=== PATIENT | male | born 1950 | race Caucasian/White ===

== ENCOUNTER 2017-11-17 23:04 | Inpatient (IN) | payer OTHER, BC ==
[2017-11-18 00:25] LABS: ADD MAN DIFF? NO
[2017-11-18 00:29] LABS: BASOPHIL # 0.1 10^3/ul (0.0-0.1); BASOPHILS % 0.9 % (0.0-2.0); EOSINOPHILS # 0.1 10^3/ul (0.0-0.5); EOSINOPHILS % 0.9 % (0.0-7.0); HEMATOCRIT 46.4 % (42.0-52.0); HEMOGLOBIN 15.5 g/dl (14.0-18.0); LYMPHOCYTES # 2.1 10^3/ul (0.8-2.9); LYMPHOCYTES % 26.3 % (15.0-51.0); MEAN CORPUSCULAR HEMOGLOBIN 30.5 pg (29.0-33.0); MEAN CORPUSCULAR HGB CONC 33.4 g/dl (32.0-37.0); MEAN CORPUSCULAR VOLUME 91.3 fl (82.0-101.0); MEAN PLATELET VOLUME 11.5 fl (7.4-10.4); MONOCYTE # 0.9 10^3/ul (0.3-0.9); MONOCYTES % 10.6 % (0.0-11.0); NEUTROPHIL # 4.9 10^3/ul (1.6-7.5); NEUTROPHILS % 60.9 % (39.0-77.0); PLATELET COUNT 160 10^3/UL (140-415); RED BLOOD COUNT 5.08 10^6/ul (4.70-6.10); RED CELL DISTRIBUTION WIDTH 13.9 % (11.5-14.5)
[2017-11-18] MEDS: IPRATROPIUM (NEB) 0.5 MG/2.5 ML AMP INH (00:48)
[2017-11-18 00:49] LABS: INR 0.85; PROTIME 11.7 Sec (11.9-14.9); PT RATIO 0.9
[2017-11-18] MEDS: ALBUTEROL 0.5% (NEB) 2.5 MG/0.5 ML AMP INH (00:49)
[2017-11-18 00:50] LABS: PARTIAL THROMBOPLASTIN TIME 30.9 Sec (25.0-35.0)
[2017-11-18] MEDS: METHYLPREDNISOLONE 125 MG INJ IV (00:54)
[2017-11-18 01:23] LABS: ALANINE AMINOTRANSFERASE 38 IU/L (13-69); ALBUMIN 3.5 g/dl (3.3-4.9); ALKALINE PHOSPHATASE 70 IU/L (42-121); ANION GAP 15 (8-16); ASPARTATE AMINO TRANSFERASE 29 IU/L (15-46); BILIRUBIN,INDIRECT 0.1 mg/dl (0-1.1); BILIRUBIN,TOTAL 0.1 mg/dl (0.2-1.3); BLOOD UREA NITROGEN 17 mg/dl (7-20); CALCIUM 8.5 mg/dl (8.4-10.2); CARBON DIOXIDE 33 mmol/L (21-31); CHLORIDE 101 mmol/L (97-110); CREATININE 0.81 mg/dl (0.61-1.24); GLUCOSE 95 mg/dl (70-220); POTASSIUM 3.9 mmol/L (3.5-5.1); SODIUM 145 mmol/L (135-144); TOTAL PROTEIN 6.4 g/dl (6.1-8.1)
[2017-11-18] MEDS: CEFTRIAXONE 1 GM/50 ML (PMX) 50 ML IVPB ×2 (01:30→23:50)
[2017-11-18] MEDS: LORAZEPAM 2 MG INJ IV (01:30)
[2017-11-18] MEDS: AZITHROMYCIN 500MG/NS (PMX) 250 ML IV (01:31)
[2017-11-18 01:35] LABS: B-TYPE NATRIURETIC PEPTIDE 920 PG/ML (0-125); TROPONIN-I 0.084 ng/ml (0.00-0.12)
[2017-11-18 06:58] LABS: LACTIC ACID 1.1 mmol/L (0.5-2.0)
[2017-11-18] MEDS: OXYCODONE/ACETAMINOPHEN (5/325) TAB PO ×2 (07:26→23:51)
[2017-11-18 08:17] LABS: HEPATITIS B SURFACE ANTIGEN NEGATIVE (NEGATIVE)
[2017-11-18 08:34] LABS: HEPATITIS B SURFACE ANTIBODY NEGATIVE (NEGATIVE)
[2017-11-18 08:34] LABS: HEPATITIS C VIRAL ANTIBODY NEGATIVE (NEGATIVE)
[2017-11-18 08:35] LABS: HIV 1&2 ANTIBODY NEGATIVE (NEGATIVE)
[2017-11-18 12:58] LABS: AADO2 Arterial 71.8 mmHg (7.0-24.0); Allen Test ACCEPTAB; Arterial Base Excess 6.2 mmol/L (-3.0-3); Arterial COHb 1.8 % (0.0-3.0); Arterial HCO3 33.8 mmol/L (22.0-26.0); Arterial MetHb 0.3 % (0.0-1.5); Arterial Total Hemglobin 16.5 g/dl (12.0-18.0); Arterial pCO2 59.8 mmhg (35-45); Blood Gas IEPAP 15/5; Blood Gas PS 10; MODE MASK - BIPAP; Site Right Radial
[2017-11-18] MEDS ORDERED: ONDANSETRON 4 MG TAB PO ×2 (13:30→21:30)
[2017-11-18] MEDS ORDERED: NACL 0.9% 3 ML SYG IV (13:30)
[2017-11-18] MEDS ORDERED: OXYCODONE/ACETAMINOPHEN (5/325) TAB PO (13:30)
[2017-11-18] MEDS ORDERED: BISACODYL (EC) 5 MG TAB PO (13:30)
[2017-11-18] MEDS ORDERED: DOCUSATE SODIUM 100 MG CAP PO (13:30)
[2017-11-18] MEDS ORDERED: MAGNESIUM HYDROXIDE 30ML CUP PO (13:30)
[2017-11-18] MEDS: FAMOTIDINE 20 MG TAB PO ×2 (13:30→23:51)
[2017-11-18] MEDS ORDERED: ACETAMINOPHEN 325 MG TAB PO (13:30)
[2017-11-18 13:53] LABS: CREATINE KINASE 236 IU/L (23-200)
[2017-11-18 13:56] LABS: D-DIMER 414.31 ng/ml (<460)
[2017-11-18 14:06] LABS: CK INDEX 1.6
[2017-11-18 14:09] LABS: CK-MB 3.68 ng/ml (0.0-2.4)
[2017-11-18 14:11] LABS: TROPONIN-I 0.202 ng/ml (0.00-0.12)
[2017-11-18] MEDS: ENOXAPARIN 40 MG/0.4 ML SYG SC (14:26)
[2017-11-18] MEDS: ASPIRIN 325 MG TAB PO (14:50)
[2017-11-18] MEDS ORDERED: ASPIRIN (EC) 325 MG TAB PO (15:00)
[2017-11-18] MEDS: ALBUTEROL/IPRATROPIUM (NEB) 3 ML AMP HHN ×2 (18:04→20:11)
[2017-11-18] MEDS ORDERED: AZITHROMYCIN 500MG/NS (PMX) 250 ML IVPB (19:30)
[2017-11-18] MEDS ORDERED: NICOTINE POLACRILEX 2 MG GUM BUCCAL (19:30)
[2017-11-18] MEDS ORDERED: ALBUTEROL/IPRATROPIUM (NEB) 3 ML AMP HHN (19:30)
[2017-11-18 19:31] LABS: CREATINE KINASE 202 IU/L (23-200)
[2017-11-18 19:45] LABS: CK INDEX 1.7; TROPONIN-I 0.178 ng/ml (0.00-0.12)
[2017-11-18] MEDS: AZITHROMYCIN 500MG/NS (PMX) 250 ML IVPB (23:30)
[2017-11-18] MEDS: SALMETEROL/FLUTICASONE 500/50 INHA INH (23:30)
[2017-11-18] MEDS: MAGNESIUM SULFATE 2 GM/50 ML 50 ML IVPB (23:49)
[2017-11-18] MEDS: ATORVASTATIN 40 MG TAB PO (23:50)
[2017-11-18] MEDS: MONTELUKAST 10 MG TAB PO (23:50)
[2017-11-18] MEDS: SOD CHLORIDE 0.9% 1,000 ML IV (23:50)
[2017-11-19] MEDS: ALBUTEROL/IPRATROPIUM (NEB) 3 ML AMP HHN ×6 (00:10→20:13)
[2017-11-19] MEDS: MAGNESIUM SULFATE 2 GM/50 ML 50 ML IVPB (00:19)
[2017-11-19] MEDS: OXYCODONE/ACETAMINOPHEN (5/325) TAB PO ×3 (07:01→21:48)
[2017-11-19] MEDS ORDERED: METHYLPREDNISOLONE 125 MG INJ IV (09:00)
[2017-11-19] MEDS ORDERED: METHYLPREDNISOLONE (10 MG/ML) IV SYG IV (09:00)
[2017-11-19] MEDS: FAMOTIDINE 20 MG TAB PO ×2 (09:13→20:51)
[2017-11-19] MEDS: LISINOPRIL 5 MG TAB PO (09:13)
[2017-11-19] MEDS: ASPIRIN 81 MG TAB PO (09:14)
[2017-11-19] MEDS: SALMETEROL/FLUTICASONE 500/50 INHA INH ×2 (09:14→20:52)
[2017-11-19] MEDS: ALPRAZOLAM 0.5 MG TAB PO ×2 (09:16→20:51)
[2017-11-19] MEDS: METHYLPREDNISOLONE 125 MG INJ IV ×3 (09:17→20:51)
[2017-11-19] MEDS: NICOTINE (21 MG/24 HR) PATCH TRANSDERM (09:21)
[2017-11-19] MEDS: ENOXAPARIN 40 MG/0.4 ML SYG SC (09:27)
[2017-11-19] MEDS: SOD CHLORIDE 0.9% 1,000 ML IV ×2 (09:48→17:54)
[2017-11-19 11:18] LABS: ADD MAN DIFF? NO
[2017-11-19 11:22] LABS: BASOPHILS % 0.4 % (0.0-2.0); EOSINOPHILS % 0.3 % (0.0-7.0); HEMOGLOBIN 15.6 g/dl (14.0-18.0); LYMPHOCYTES # 1.3 10^3/ul (0.8-2.9); LYMPHOCYTES % 17.9 % (15.0-51.0); MEAN CORPUSCULAR HEMOGLOBIN 30.6 pg (29.0-33.0); MEAN CORPUSCULAR HGB CONC 33.2 g/dl (32.0-37.0); MEAN CORPUSCULAR VOLUME 92.2 fl (82.0-101.0); MEAN PLATELET VOLUME 11.4 fl (7.4-10.4); MONOCYTE # 0.5 10^3/ul (0.3-0.9); MONOCYTES % 7.2 % (0.0-11.0); NEUTROPHIL # 5.2 10^3/ul (1.6-7.5); NEUTROPHILS % 73.9 % (39.0-77.0); PLATELET COUNT 162 10^3/UL (140-415); RED CELL DISTRIBUTION WIDTH 13.6 % (11.5-14.5)
[2017-11-19 11:41] LABS: ANION GAP 8 (8-16); BLOOD UREA NITROGEN 20 mg/dl (7-20); CALCIUM 8.9 mg/dl (8.4-10.2); CARBON DIOXIDE 38 mmol/L (21-31); CHLORIDE 103 mmol/L (97-110); CREATININE 0.65 mg/dl (0.61-1.24); GLUCOSE 107 mg/dl (70-220); POTASSIUM 4.6 mmol/L (3.5-5.1); SODIUM 144 mmol/L (135-144)
[2017-11-19 11:52] LABS: TROPONIN-I 0.105 ng/ml (0.00-0.12)
[2017-11-19 12:05] LABS: ADD UMIC NO; UR ASCORBIC ACID NEGATIVE (NEGATIVE); UR BILIRUBIN (Dip) NEGATIVE (NEGATIVE); UR BLOOD (Dip) NEGATIVE (NEGATIVE); UR CLARITY CLEAR (CLEAR); UR COLOR YELLOW (YELLOW); UR GLUCOSE (Dip) NEGATIVE (NEGATIVE); UR KETONES (Dip) NEGATIVE (NEGATIVE); UR LEUKOCYTE ESTERASE (Dip) NEGATIVE Leu/ul (NEGATIVE); UR NITRITE (Dip) NEGATIVE (NEGATIVE); UR SPECIFIC GRAVITY (Dip) 1.015 (1.003-1.030); UR TOTAL PROTEIN (Dip) NEGATIVE (NEGATIVE); UR UROBILINOGEN (Dip) 2+ mg/dL (NEGATIVE)
[2017-11-19] MEDS: ATORVASTATIN 40 MG TAB PO (20:50)
[2017-11-19] MEDS: MONTELUKAST 10 MG TAB PO (20:50)
[2017-11-19] MEDS: CEFTRIAXONE 1 GM/50 ML (PMX) 50 ML IVPB (20:52)
[2017-11-19] MEDS: AZITHROMYCIN 500MG/NS (PMX) 250 ML IVPB (22:37)
[2017-11-20] MEDS: ALBUTEROL/IPRATROPIUM (NEB) 3 ML AMP HHN ×6 (01:15→20:52)
[2017-11-20] MEDS: METHYLPREDNISOLONE 125 MG INJ IV ×4 (03:41→21:26)
[2017-11-20] MEDS: OXYCODONE/ACETAMINOPHEN (5/325) TAB PO (05:23)
[2017-11-20] MEDS: SALMETEROL/FLUTICASONE 500/50 INHA INH ×2 (08:56→21:27)
[2017-11-20] MEDS: ALPRAZOLAM 0.5 MG TAB PO ×2 (08:57→21:25)
[2017-11-20] MEDS: ASPIRIN 81 MG TAB PO (08:57)
[2017-11-20] MEDS: FAMOTIDINE 20 MG TAB PO ×2 (08:57→21:24)
[2017-11-20] MEDS: LISINOPRIL 5 MG TAB PO (08:58)
[2017-11-20] MEDS: NICOTINE (21 MG/24 HR) PATCH TRANSDERM (08:58)
[2017-11-20] MEDS: ENOXAPARIN 40 MG/0.4 ML SYG SC (09:00)
[2017-11-20] MEDS: SOD CHLORIDE 0.9% 1,000 ML IV ×2 (14:24→15:13)
[2017-11-20] MEDS: ATORVASTATIN 40 MG TAB PO (21:24)
[2017-11-20] MEDS: MONTELUKAST 10 MG TAB PO (21:25)
[2017-11-20] MEDS: CEFTRIAXONE 1 GM/50 ML (PMX) 50 ML IVPB (21:27)
[2017-11-20] MEDS: AZITHROMYCIN 500MG/NS (PMX) 250 ML IVPB (23:07)
[2017-11-20] MEDS: morphine 2 MG INJ IV (23:08)
[2017-11-21] MEDS: ALBUTEROL/IPRATROPIUM (NEB) 3 ML AMP HHN ×6 (00:52→20:46)
[2017-11-21] MEDS: METHYLPREDNISOLONE 125 MG INJ IV ×4 (03:46→21:41)
[2017-11-21 05:54] LABS: ADD MAN DIFF? NO
[2017-11-21 06:00] LABS: BASOPHILS % 0.1 % (0.0-2.0); HEMATOCRIT 42.1 % (42.0-52.0); HEMOGLOBIN 13.8 g/dl (14.0-18.0); LYMPHOCYTES # 1.7 10^3/ul (0.8-2.9); LYMPHOCYTES % 18.7 % (15.0-51.0); MEAN CORPUSCULAR HGB CONC 32.8 g/dl (32.0-37.0); MEAN CORPUSCULAR VOLUME 91.5 fl (82.0-101.0); MEAN PLATELET VOLUME 11.9 fl (7.4-10.4); MONOCYTE # 0.3 10^3/ul (0.3-0.9); MONOCYTES % 3.5 % (0.0-11.0); NEUTROPHILS % 77.3 % (39.0-77.0); PLATELET COUNT 175 10^3/UL (140-415); POSITIVE DIFF @See below; RED CELL DISTRIBUTION WIDTH 13.6 % (11.5-14.5)
[2017-11-21 06:22] LABS: ANION GAP 11 (8-16); BLOOD UREA NITROGEN 23 mg/dl (7-20); CALCIUM 8.7 mg/dl (8.4-10.2); CARBON DIOXIDE 34 mmol/L (21-31); CHLORIDE 105 mmol/L (97-110); CREATININE 0.64 mg/dl (0.61-1.24); GLUCOSE 125 mg/dl (70-220); MAGNESIUM 2.1 mg/dl (1.7-2.5); POTASSIUM 4.6 mmol/L (3.5-5.1); SODIUM 145 mmol/L (135-144)
[2017-11-21] MEDS: LISINOPRIL 5 MG TAB PO (09:00)
[2017-11-21] MEDS: ALPRAZOLAM 0.5 MG TAB PO ×2 (09:04→21:41)
[2017-11-21] MEDS: ASPIRIN 81 MG TAB PO (09:04)
[2017-11-21] MEDS: FAMOTIDINE 20 MG TAB PO ×2 (09:04→21:41)
[2017-11-21] MEDS: OXYCODONE/ACETAMINOPHEN (5/325) TAB PO ×3 (09:05→22:20)
[2017-11-21] MEDS: NICOTINE (21 MG/24 HR) PATCH TRANSDERM (09:06)
[2017-11-21] MEDS: ENOXAPARIN 40 MG/0.4 ML SYG SC (09:07)
[2017-11-21] MEDS: SALMETEROL/FLUTICASONE 500/50 INHA INH ×2 (09:13→21:42)
[2017-11-21 09:20] LABS: ANISOCYTOSIS 1+ (0-0); BAND NEUTROPHILS #M 0.3 10^3/ul (0.0-0.6); BAND NEUTROPHILS % (M) 4 % (0-4); GIANT THROMBO% (M) 2 % (0-0); LYMPHOCYTES #M 0.9 10^3/ul (0.8-2.9); LYMPHOCYTES % (M) 10 % (15-51); MICROCYTOSIS 1+ (0-0); MONOCYTE #M 0.4 10^3/ul (0.3-0.9); MONOCYTES % (M) 5 % (0-11); PLATELET ESTIMATE NORMAL; POLYCHROMASIA 2+ (0-0); REACTIVE LYMPHOCYTES #M 0.1 10^3/ul (0.0-0.0); REACTIVE LYMPHOCYTES% (M) 2 % (0-0); SEG NEUT #M 7.1 10^3/ul (1.6-7.5); SEGMENTED NEUTROPHILS (M) % 79 % (39-77); SMUDGE%M 3 % (0-0)
[2017-11-21] MEDS: CEFTRIAXONE 1 GM/50 ML (PMX) 50 ML IVPB (18:31)
[2017-11-21] MEDS: SOD CHLORIDE 0.9% 1,000 ML IV (18:32)
[2017-11-21] MEDS: MONTELUKAST 10 MG TAB PO (21:41)
[2017-11-21] MEDS: ATORVASTATIN 40 MG TAB PO (21:41)
[2017-11-21] MEDS: GUAIFENESIN/DM 5ML CUP PO (22:19)
[2017-11-21] MEDS: AZITHROMYCIN 500MG/NS (PMX) 250 ML IVPB (23:51)
[2017-11-22] MEDS: ALBUTEROL/IPRATROPIUM (NEB) 3 ML AMP HHN ×6 (01:02→20:12)
[2017-11-22] MEDS: METHYLPREDNISOLONE 125 MG INJ IV ×2 (03:56→09:05)
[2017-11-22] MEDS: SALMETEROL/FLUTICASONE 500/50 INHA INH ×2 (09:04→20:46)
[2017-11-22] MEDS: FAMOTIDINE 20 MG TAB PO ×2 (09:05→20:47)
[2017-11-22] MEDS: ASPIRIN 81 MG TAB PO (09:05)
[2017-11-22] MEDS: NICOTINE (21 MG/24 HR) PATCH TRANSDERM (09:06)
[2017-11-22] MEDS: LISINOPRIL 5 MG TAB PO (09:06)
[2017-11-22] MEDS: ENOXAPARIN 40 MG/0.4 ML SYG SC (09:09)
[2017-11-22] MEDS: ALPRAZOLAM 0.5 MG TAB PO ×2 (09:12→21:19)
[2017-11-22] MEDS: SOD CHLORIDE 0.9% 1,000 ML IV ×2 (09:12→14:25)
[2017-11-22] MEDS: OXYCODONE/ACETAMINOPHEN (5/325) TAB PO ×3 (09:26→20:48)
[2017-11-22 11:37] LABS: Allen Test ACCEPTAB; Arterial Base Excess 3.9 mmol/L (-3.0-3); Arterial Blood Gas Oxygen Sat 90.4 mmHG (95.0-98.0); Arterial COHb 0.2 % (0.0-3.0); Arterial Fraction of Oxyhgb 89.9 % (93.0-99.0); Arterial HCO3 30.6 mmol/L (22.0-26.0); Arterial MetHb 0.4 % (0.0-1.5); Arterial Total Hemglobin 14.4 g/dl (12.0-18.0); Arterial pCO2 54.6 mmhg (35-45); MODE NASAL CANNULA; Site Left Radial
[2017-11-22 13:16] LABS: ADD MAN DIFF? NO
[2017-11-22 13:20] LABS: BASOPHILS % 0.1 % (0.0-2.0); HEMATOCRIT 40.9 % (42.0-52.0); HEMOGLOBIN 13.5 g/dl (14.0-18.0); LYMPHOCYTES # 1.3 10^3/ul (0.8-2.9); MEAN CORPUSCULAR HEMOGLOBIN 29.9 pg (29.0-33.0); MEAN CORPUSCULAR VOLUME 90.5 fl (82.0-101.0); MEAN PLATELET VOLUME 11.9 fl (7.4-10.4); MONOCYTE # 0.3 10^3/ul (0.3-0.9); MONOCYTES % 4.4 % (0.0-11.0); NEUTROPHIL # 5.8 10^3/ul (1.6-7.5); NEUTROPHILS % 78.2 % (39.0-77.0); PLATELET COUNT 171 10^3/UL (140-415); RED BLOOD COUNT 4.52 10^6/ul (4.70-6.10); RED CELL DISTRIBUTION WIDTH 13.8 % (11.5-14.5)
[2017-11-22 13:20] LABS: WHITE BLOOD COUNT 7.4 10^3/ul (4.8-10.8)
[2017-11-22 13:37] LABS: ANION GAP 10 (8-16); BLOOD UREA NITROGEN 21 mg/dl (7-20); CALCIUM 8.6 mg/dl (8.4-10.2); CARBON DIOXIDE 31 mmol/L (21-31); CHLORIDE 107 mmol/L (97-110); CREATININE 0.65 mg/dl (0.61-1.24); GLUCOSE 104 mg/dl (70-220); MAGNESIUM 2.2 mg/dl (1.7-2.5); POTASSIUM 4.6 mmol/L (3.5-5.1); SODIUM 143 mmol/L (135-144)
[2017-11-22] MEDS: METHYLPREDNISOLONE 40 MG INJ IV ×2 (14:21→21:45)
[2017-11-22] MEDS: CEFTRIAXONE 1 GM/50 ML (PMX) 50 ML IVPB (19:11)
[2017-11-22] MEDS: ATORVASTATIN 40 MG TAB PO (20:46)
[2017-11-22] MEDS: MONTELUKAST 10 MG TAB PO (20:47)
[2017-11-22] MEDS: GUAIFENESIN/DM 5ML CUP PO (20:47)
[2017-11-22] MEDS: AZITHROMYCIN 500MG/NS (PMX) 250 ML IVPB (23:26)
[2017-11-23] MEDS: ALBUTEROL/IPRATROPIUM (NEB) 3 ML AMP HHN ×4 (00:20→12:01)
[2017-11-23] MEDS: METHYLPREDNISOLONE 40 MG INJ IV (05:03)
[2017-11-23] MEDS: OXYCODONE/ACETAMINOPHEN (5/325) TAB PO ×2 (05:04→12:29)
[2017-11-23 06:21] LABS: ADD MAN DIFF? NO
[2017-11-23 06:26] LABS: WHITE BLOOD COUNT 7.5 10^3/ul (4.8-10.8)
[2017-11-23 06:26] LABS: HEMATOCRIT 42.1 % (42.0-52.0); HEMOGLOBIN 14.2 g/dl (14.0-18.0); LYMPHOCYTES # 1.7 10^3/ul (0.8-2.9); LYMPHOCYTES % 22.8 % (15.0-51.0); MEAN CORPUSCULAR HEMOGLOBIN 30.1 pg (29.0-33.0); MEAN CORPUSCULAR HGB CONC 33.7 g/dl (32.0-37.0); MEAN CORPUSCULAR VOLUME 89.4 fl (82.0-101.0); MEAN PLATELET VOLUME 11.9 fl (7.4-10.4); MONOCYTE # 0.4 10^3/ul (0.3-0.9); MONOCYTES % 5.9 % (0.0-11.0); NEUTROPHIL # 5.3 10^3/ul (1.6-7.5); NEUTROPHILS % 70.9 % (39.0-77.0); PLATELET COUNT 188 10^3/UL (140-415); RED BLOOD COUNT 4.71 10^6/ul (4.70-6.10); RED CELL DISTRIBUTION WIDTH 13.6 % (11.5-14.5)
[2017-11-23 06:45] LABS: ALANINE AMINOTRANSFERASE 48 IU/L (13-69); ALBUMIN 3.2 g/dl (3.3-4.9); ALBUMIN/GLOBULIN RATIO 1.14; ALKALINE PHOSPHATASE 50 IU/L (42-121); ANION GAP 10 (8-16); ASPARTATE AMINO TRANSFERASE 24 IU/L (15-46); BILIRUBIN,INDIRECT 0.3 mg/dl (0-1.1); BILIRUBIN,TOTAL 0.3 mg/dl (0.2-1.3); BLOOD UREA NITROGEN 19 mg/dl (7-20); CALCIUM 8.8 mg/dl (8.4-10.2); CARBON DIOXIDE 33 mmol/L (21-31); CHLORIDE 104 mmol/L (97-110); CREATININE 0.63 mg/dl (0.61-1.24); GLUCOSE 110 mg/dl (70-220); POTASSIUM 4.1 mmol/L (3.5-5.1); SODIUM 143 mmol/L (135-144)
[2017-11-23 06:46] LABS: PHOSPHORUS 3.5 mg/dl (2.5-4.9)
[2017-11-23] MEDS: morphine LIQ (10 MG/5 ML) CUP PO (07:37)
[2017-11-23] MEDS: SALMETEROL/FLUTICASONE 500/50 INHA INH (09:11)
[2017-11-23] MEDS: FAMOTIDINE 20 MG TAB PO (09:11)
[2017-11-23] MEDS: NICOTINE (21 MG/24 HR) PATCH TRANSDERM (09:11)
[2017-11-23] MEDS: ASPIRIN 81 MG TAB PO (09:11)
[2017-11-23] MEDS: ENOXAPARIN 40 MG/0.4 ML SYG SC (09:14)
[2017-11-23] MEDS: ALPRAZOLAM 0.5 MG TAB PO (09:17)
[2017-11-23] MEDS: LISINOPRIL 5 MG TAB PO (09:19)
[2017-11-23] MEDS ORDERED: METHYLPREDNISOLONE 40 MG INJ IV (21:00)
== END 2017-11-23 14:10 | DRG 193 ==
LOC: E/R 23:04 → TEL 11-18 02:49
PROC: 5A09457 Assistance with Respiratory Ventilation, 24-96 Consecutive Hours, Continuous Positive Airway Pressure (ICD-10-PCS; principal; 2017-11-18)
DX: J18.9 Pneumonia, unspecified organism (principal); J96.21 Acute and chronic respiratory failure with hypoxia; J96.22 Acute and chronic respiratory failure with hypercapnia; J44.0 Chronic obstructive pulmonary disease with (acute) lower respiratory infection; J44.1 Chronic obstructive pulmonary disease with (acute) exacerbation; Z68.37 Body mass index [BMI] 37.0-37.9, adult; Z72.0 Tobacco use; F17.200 Nicotine dependence, unspecified, uncomplicated; I25.10 Atherosclerotic heart disease of native coronary artery without angina pectoris; I25.2 Old myocardial infarction; Z95.1 Presence of aortocoronary bypass graft; I11.9 Hypertensive heart disease without heart failure; E66.01 Morbid (severe) obesity due to excess calories; R79.9 Abnormal finding of blood chemistry, unspecified; J20.9 Acute bronchitis, unspecified
CPT/HCPCS: 36415; 36600; 71045; 80048; 80053; 81003; 82550; 82553; 82803; 83605; 83735; 83880; 84100; 84484; 85025; 85378; 85610; 85730; 86703; 86706; 86803; 87040; 87340; 93005; 93306; 94640; 94644; 94660; 94664; 96374; 96375; 96376; 97162; 99291-25

== ENCOUNTER 2018-08-23 20:22 | Inpatient (IN) | payer OTHER ==
[2018-08-23 22:25] LABS: ADD MAN DIFF? NO
[2018-08-23 22:26] LABS: WHITE BLOOD COUNT 8.9 10^3/ul (4.8-10.8)
[2018-08-23 22:26] LABS: BASOPHIL # 0.1 10^3/ul (0.0-0.1); BASOPHILS % 0.9 % (0.0-2.0); EOSINOPHILS # 0.2 10^3/ul (0.0-0.5); HEMATOCRIT 43.6 % (42.0-52.0); HEMOGLOBIN 14.1 g/dl (14.0-18.0); LYMPHOCYTES # 2.4 10^3/ul (0.8-2.9); LYMPHOCYTES % 27.2 % (15.0-51.0); MEAN CORPUSCULAR HEMOGLOBIN 30.3 pg (29.0-33.0); MEAN CORPUSCULAR HGB CONC 32.3 g/dl (32.0-37.0); MEAN CORPUSCULAR VOLUME 93.8 fl (82.0-101.0); MEAN PLATELET VOLUME 11.8 fl (7.4-10.4); MONOCYTE # 0.5 10^3/ul (0.3-0.9); MONOCYTES % 6.1 % (0.0-11.0); NEUTROPHIL # 5.7 10^3/ul (1.6-7.5); NEUTROPHILS % 63.5 % (39.0-77.0); PLATELET COUNT 198 10^3/UL (140-415); RED BLOOD COUNT 4.65 10^6/ul (4.70-6.10); RED CELL DISTRIBUTION WIDTH 13.2 % (11.5-14.5)
[2018-08-23 22:42] LABS: ALANINE AMINOTRANSFERASE 20 IU/L (13-69); ALBUMIN 3.7 g/dl (3.3-4.9); ALBUMIN/GLOBULIN RATIO 1.19; ALKALINE PHOSPHATASE 63 IU/L (42-121); ASPARTATE AMINO TRANSFERASE 23 IU/L (15-46); BLOOD UREA NITROGEN 18 mg/dl (7-20); CARBON DIOXIDE 34 mmol/L (21-31); CHLORIDE 102 mmol/L (97-110); CREATININE 0.62 mg/dl (0.61-1.24); Estimated GFR > 60 mL/min (>60); GLUCOSE 109 mg/dl (70-220); POTASSIUM 4.5 mmol/L (3.5-5.1); TOTAL PROTEIN 6.8 g/dl (6.1-8.1)
[2018-08-23 22:43] LABS: ANION GAP 6 (5-13); SODIUM 142 mmol/L (135-144)
[2018-08-23 22:45] LABS: INR 0.82; PROTIME 11.4 Sec (11.9-14.9); PT RATIO 0.9
[2018-08-23 22:54] LABS: B-TYPE NATRIURETIC PEPTIDE 256 PG/ML (0-125)
[2018-08-23 23:00] LABS: TROPONIN-I 0.125 ng/ml (0.000-0.120)
[2018-08-23] MEDS: IPRATROPIUM (NEB) 0.5 MG/2.5 ML AMP INH (23:23)
[2018-08-23] MEDS: ALBUTEROL 0.083% (NEB) 2.5 MG/3 ML AMP INH (23:24)
[2018-08-23] MEDS ORDERED: ONDANSETRON 4 MG INJ IV (23:30)
[2018-08-23] MEDS ORDERED: ALBUTEROL 0.083% (NEB) 2.5 MG/3 ML AMP HHN (23:30)
[2018-08-23] MEDS ORDERED: morphine 2 MG INJ IV (23:30)
[2018-08-23] MEDS ORDERED: NON-FORMULARY/PATIENT OWN MED (Umeclidinium Brm-Vilanterol Tr (Anoro Ellipta) 1 PUFF) PO (23:30)
[2018-08-23] MEDS ORDERED: ALBUTEROL/IPRATROPIUM (NEB) 3 ML AMP HHN (23:30)
[2018-08-23] MEDS: DEXAMETHASONE 4 MG TAB PO (23:53)
[2018-08-23] MEDS: METHYLPREDNISOLONE 125 MG INJ IV (23:54)
[2018-08-23] MEDS: AZITHROMYCIN 500MG/NS (PMX) 250 ML IVPB (23:54)
[2018-08-23] MEDS: ASPIRIN 325 MG TAB PO (23:54)
[2018-08-24] MEDS: ALBUTEROL/IPRATROPIUM (NEB) 3 ML AMP HHN ×4 (01:13→20:14)
[2018-08-24] MEDS: morphine SULFATE/PF (2 MG/2 ML) SYG IV ×2 (02:40→10:32)
[2018-08-24] MEDS: METHYLPREDNISOLONE 125 MG INJ IV ×3 (05:31→21:12)
[2018-08-24 06:41] LABS: TROPONIN-I 0.107 ng/ml (0.000-0.120)
[2018-08-24] MEDS: ASPIRIN (EC) 81 MG TAB PO (08:22)
[2018-08-24] MEDS: ENOXAPARIN 40 MG/0.4 ML SYG SC (08:30)
[2018-08-24] MEDS: CEFTRIAXONE 1 GM/50 ML (PMX) 50 ML IVPB (10:23)
[2018-08-24] MEDS: AZITHROMYCIN 500MG/NS (PMX) 250 ML IVPB (10:24)
[2018-08-24] MEDS: HYDROCODONE/APAP (5/325) TAB NGT ×2 (13:50→18:08)
[2018-08-24] MEDS: ALPRAZOLAM 0.5 MG TAB PO (13:50)
[2018-08-24] MEDS: ACETAMINOPHEN 325 MG TAB PO (16:07)
[2018-08-24] MEDS ORDERED: HYDROmorphONE 1 MG/ML SYG IV (18:30)
[2018-08-24] MEDS: HYDROmorphONE 0.5 MG/0.5 ML SYG IV ×2 (18:37→22:10)
[2018-08-24] MEDS: METOPROLOL 25 MG TAB PO (20:12)
[2018-08-24] MEDS: ATORVASTATIN 40 MG TAB PO (20:12)
[2018-08-24] MEDS: IPRATROPIUM (NEB) 0.5 MG/2.5 ML AMP INH (22:31)
[2018-08-25] MEDS: ALBUTEROL/IPRATROPIUM (NEB) 3 ML AMP HHN ×3 (01:08→13:48)
[2018-08-25] MEDS: HYDROmorphONE 0.5 MG/0.5 ML SYG IV ×5 (02:42→19:55)
[2018-08-25] MEDS: METHYLPREDNISOLONE 125 MG INJ IV ×2 (05:03→13:51)
[2018-08-25 07:46] LABS: ADD MAN DIFF? NO
[2018-08-25 07:52] LABS: WHITE BLOOD COUNT 8.4 10^3/ul (4.8-10.8)
[2018-08-25 07:52] LABS: BASOPHILS % 0.1 % (0.0-2.0); HEMOGLOBIN 13.6 g/dl (14.0-18.0); LYMPHOCYTES # 1.2 10^3/ul (0.8-2.9); LYMPHOCYTES % 14.6 % (15.0-51.0); MEAN CORPUSCULAR HEMOGLOBIN 30.2 pg (29.0-33.0); MEAN CORPUSCULAR HGB CONC 33.2 g/dl (32.0-37.0); MEAN CORPUSCULAR VOLUME 90.9 fl (82.0-101.0); MEAN PLATELET VOLUME 12.4 fl (7.4-10.4); MONOCYTE # 0.4 10^3/ul (0.3-0.9); MONOCYTES % 4.4 % (0.0-11.0); NEUTROPHIL # 6.8 10^3/ul (1.6-7.5); NEUTROPHILS % 80.5 % (39.0-77.0); PLATELET COUNT 216 10^3/UL (140-415); RED BLOOD COUNT 4.51 10^6/ul (4.70-6.10); RED CELL DISTRIBUTION WIDTH 13.2 % (11.5-14.5)
[2018-08-25] MEDS: ASPIRIN (EC) 81 MG TAB PO (08:00)
[2018-08-25] MEDS: METOPROLOL 25 MG TAB PO (08:01)
[2018-08-25] MEDS: ENOXAPARIN 40 MG/0.4 ML SYG SC (08:03)
[2018-08-25 08:06] LABS: MAGNESIUM 1.9 mg/dl (1.7-2.5)
[2018-08-25 08:06] LABS: PHOSPHORUS 3.3 mg/dl (2.5-4.9)
[2018-08-25 08:19] LABS: ALANINE AMINOTRANSFERASE 22 IU/L (13-69); ALBUMIN 3.6 g/dl (3.3-4.9); ALBUMIN/GLOBULIN RATIO 1.33; ALKALINE PHOSPHATASE 60 IU/L (42-121); ANION GAP 5 (5-13); ASPARTATE AMINO TRANSFERASE 34 IU/L (15-46); BILIRUBIN,INDIRECT 0.2 mg/dl (0-1.1); BILIRUBIN,TOTAL 0.2 mg/dl (0.2-1.3); BLOOD UREA NITROGEN 19 mg/dl (7-20); CALCIUM 9.7 mg/dl (8.4-10.2); CARBON DIOXIDE 32 mmol/L (21-31); CHLORIDE 104 mmol/L (97-110); Estimated GFR > 60 mL/min (>60); GLUCOSE 118 mg/dl (70-220); POTASSIUM 3.8 mmol/L (3.5-5.1); SODIUM 141 mmol/L (135-144); TOTAL PROTEIN 6.3 g/dl (6.1-8.1)
[2018-08-25] MEDS: AZITHROMYCIN 500MG/NS (PMX) 250 ML IVPB (08:41)
[2018-08-25] MEDS: CEFTRIAXONE 1 GM/50 ML (PMX) 50 ML IVPB (10:14)
[2018-08-25] MEDS: ARFORMOTEROL TARTRATE 15MCG/2 ML AMP NEB (13:48)
[2018-08-25] MEDS: IOHEXOL 100 ML (15:15)
[2018-08-25] MEDS: SOD CHLORIDE 0.9% 100 ML (15:15)
[2018-08-25] MEDS ORDERED: METOPROLOL 25 MG TAB PO (21:00)
== END 2018-08-25 20:09 | DRG 190 ==
LOC: E/R 20:22 → TEL 23:01
DX: J44.1 Chronic obstructive pulmonary disease with (acute) exacerbation (principal); J96.21 Acute and chronic respiratory failure with hypoxia; J18.9 Pneumonia, unspecified organism; J96.22 Acute and chronic respiratory failure with hypercapnia; J44.0 Chronic obstructive pulmonary disease with (acute) lower respiratory infection; I25.10 Atherosclerotic heart disease of native coronary artery without angina pectoris; I25.2 Old myocardial infarction; I10 Essential (primary) hypertension; R74.8 Abnormal levels of other serum enzymes; E66.9 Obesity, unspecified; Z68.32 Body mass index [BMI] 32.0-32.9, adult; Z95.1 Presence of aortocoronary bypass graft; Z87.891 Personal history of nicotine dependence; Z99.81 Dependence on supplemental oxygen; Z79.82 Long term (current) use of aspirin
CPT/HCPCS: 36415; 71045; 71275; 80053; 83735; 83880; 84100; 84484; 85025; 85610; 87070; 87400; 93005; 93306; 94640; 94664; 99285-25